=== PATIENT | male | born 1955 | race African-American/Black ===

== ENCOUNTER 2016-09-05 16:03 | Observation (INO) | payer OTHER ==
--- NOTE | ~2016-09-05 | CR72 ---
[facility] A Service of [facility] & [facility] RADIOLOGY TEXT RESULTS PATIENT: EPIFANIO PIERCE LOCATION: [facility] 569-01 : 54 UNIT #: [id number] AGE: [address]: Jonathan Sutton MD SEX: M ORDER DR: [id number] [facility] [address] [facility]. [place], [place] [address] [id number] I MR#: [id number] Acc #: [id number] NAME: EPIFANIO PIERCE : 1955 SEX: M STUDY DATE/TIME: 09/05/2016 18:13 UNIT: CEDOF ROOM: 66491 STUDY DESCRIPTION: CR Chest Single View Portable Attending Physician: Arslan Harris M.D. Ordering Physician: Ed Doctor [id number] [facility] Primary Care Physician: No Primary Care Physician MEDICAL IMAGING REPORT This report is preliminary unless electronic signature is present EXAM Portable chest x-ray, 09/05/2016 HISTORY Syncope, chest pain today. Smoker. FINDINGS AP radiograph of the chest is presented. No comparisons. Mild dextroscoliosis mid thoracic spine. No acute-appearing bony abnormality. The heart is upper limits of normal in size. Lungs are well inflated. There is evidence of bullous emphysematous change in the bilateral upper lung zones more pronounced on the right than left. No evidence of acute infectious or inflammatory disease in the lungs. No pleural effusion or pneumothorax. No suspicious nodule. Dictated by... Emilio Cartagena M.D. THIS IS AN ELECTRONICALLY VERIFIED REPORT Emilio Cartagena M.D. at 09/09/2016 10:59 PM Aravind TD: 09/05/2016 22:58 JOB #: [id number] MEDICAL IMAGING REPORT Page 1 of 1 COPY
--- NOTE | ~2016-09-05 | CO ---
Unit #: [id number] #: [id number] Patient: EPIFANIO PIERCE [id number] [facility] [address] [facility] [place]. [place], [place] [address] [id number] I MR#: [id number] NAME: EPIFANIO PIERCE ROOM: 569 Age: 60 Sex: M Admission Date: 09/05/2016 : 1955 Attending Physician: Jonathan Sutton M.D. Consultation Date: 09/06/2016 CONSULTATION REPORT REASON FOR CONSULTATION Syncopal episode. PATIENT IDENTIFICATION This is a 60-year-old right-handed male, who was evaluated in room 569 at [facility]. SOURCE OF INFORMATION The patient and evaluation done by admitting team. PROBLEM LIST 1. Recurrent syncope. 2. History of alcohol abuse. 3. History of hiatal hernia repair. HISTORY OF PRESENT ILLNESS This is a very pleasant 60-year-old gentleman, who actually was brought in because he had a syncopal episode. The patient states that he was outside checking on I believe his dog and he came inside and felt very lightheaded and the next thing he knew somebody was knocking at the door as he had collapsed and passed out. There is no witness here to tell me whether there was anything suggesting seizure or seizure-like activity. The gentleman had something happened on Mother's Day, but I do not have the details and also something happened last year and he was taken to [facility]. His head CT looks okay. His random glucose was 101 to 140. His sodium was low at 132 to 133. His alcohol level was less than 5. He says he has not had a drink since and he only drinks about 2 beers a day, but I have no way to corroborate that. He did acknowledge about 6 pack daily in the past and started quitting about 3 weeks ago. So far, the working diagnosis is possible dehydration. He does not have significant autonomic hyperactivity though his blood pressure one time went up to 163 systolic and 96 diastolic. He is awake and alert and wants to go home. 1. Epilepsy not established. 2. He really is not taking any medication. There is no change in medication. Again, details are very sketchy. 3. No tongue bites. No loss of bowel or bladder control. 4. No carpet rug type friction injury. No other cause identified. His CT head was okay. CTA was okay. Cardiology is seeing him also. PAST MEDICAL HISTORY As discussed above. Unit #: [id number] #: [id number] Patient: EPIFANIO PIERCE PAST SURGICAL HISTORY Hiatal hernia repair. ALLERGIES Penicillin. HOME MEDICATIONS Apparently, he does not take anything. FAMILY HISTORY Nothing suggesting seizure or stroke. SOCIAL HISTORY Apparently, he used to be heavy drinker. For now, 1 to 2 beer a day. Denies drug use. He is a smoker about a pack a day. He is single, but he says that he has a friend. REVIEW OF SYSTEMS Mostly as discussed in history of present illness. PHYSICAL EXAMINATION VITAL SIGNS: Temperature 98.1, pulse 73, respirations 16, blood pressure 160/94, O2 saturations 93% to 99%. Weight of 177 pounds, BMI was 24. NEUROLOGIC: The patient is awake. He is alert. He is oriented. He can name and he can follow commands. No right or left confusion. No finger agnosia. Cranial nerve examination demonstrates full gomes of vision to confrontation. Eye movements are conjugate. I did not see any ptosis. I did not see any nystagmus. Extraocular movements are intact. Sensation on the face and scalp are normal. Strength of muscles of facial expression normal. Hearing seemed to be intact bilaterally. Tongue was midline. Uvula was midline. Palate elevation was normal. Head turning and shoulder shrugs were unremarkable. Motor examination demonstrated normal bulk, tone. Strength was essentially 5/5. Sensory examination intact for soft touch and pain sensation. No extinction was seen. Romberg was not evaluated. Gait examination was deferred. I could not get any reflexes. Toes are equivocal. Coordination was normal otherwise. DIAGNOSTIC STUDIES LABORATORY RESULTS: Reviewed. IMAGING STUDIES: Reviewed. IMPRESSION Recurrent syncopal episodes. Cause is not identified. At one time, he reports that he was drinking and he passed out. The other is at this time, he was not drinking and what happened on Mother's Day I really do not know. Epilepsy has not been ruled in or ruled out. If there is no Unit #: [id number] #: [id number] Patient: EPIFANIO PEIRCE other cause identified, I would recommend that we get EEG on him, which can be done inpatient or outpatient. Call me in the meantime. Since he is passing out and we do not have any cause identified, he needs to be on loss of consciousness precaution. I do recommend Johnathan at this time. I will check his other labs. Cardiology is seeing him and we will see how things go. I will check his carotid Doppler. I checked his CTA and that was okay. There is no hypotension that I can see. If he is stable otherwise, he can be followed up as outpatient and call me for any further event and if we can identify particular cause that would be fine and otherwise nothing else to add. If he is here on Thursday, we can do an EEG then and let me know if I can help in any other way. Dictated by... Stephanie Forrester/joshua TD: 09/07/2016 04:07 JOB #: [id number] CONSULTATION REPORT Page 1 of 1 X Aristeo Pat MD X CONSULTATION REPORT
--- NOTE | ~2016-09-05 | CT23 ---
[facility] A Service of [facility] RADIOLOGY TEXT RESULTS PATIENT: EPIFANIO PIERCE LOCATION: [facility] 5612-19 : 54 UNIT #: [id number] AGE: [address]: Jonathan Sutton MD SEX: M ORDER DR: [id number] [facility] [address] [facility]. [place], [place] [address] [id number] I MR#: [id number] Acc #: [id number] NAME: EPIFANIO PIERCE : 1955 SEX: M STUDY DATE/TIME: 09/05/2016 22:20 UNIT: [facility] ROOM: [facility] STUDY DESCRIPTION: CT Angio Neck Attending Physician: Arslan Harris M.D. Ordering Physician: Bailey Robles M.D. Primary Care Physician: No Primary Care Physician MEDICAL IMAGING REPORT This report is preliminary unless electronic signature is present EXAM CTA head and neck INDICATIONS Confusion. Syncope. Lethargy. TECHNIQUE CT angiography of the head and neck with IV contrast. 100 mL Isovue-370 IV contrast was utilized. Coronal and sagittal 3-D MIP reconstructions were obtained. Curved planar reconstructions and volume reconstructions were also acquired. COMPARISON CT head dated 09/05/2016. FINDINGS CTA NECK: Evaluation for a significant stenosis is based upon the NASCET criteria. There is a bovine aortic arch. The left vertebral artery arises directly off the arch. Both carotid arteries are widely patent. There is no evidence of a significant carotid arterial stenosis. There is mild atherosclerotic disease at the bifurcation. The vertebral arteries are patent. The right vertebral artery is dominant. The left vertebral artery terminates at the left PICA branch. No evidence of vertebral arterial stenosis. There is severe bullous emphysema in the lung apices. CTA HEAD: The intracranial internal carotid arteries are widely patent. No evidence of a significant stenosis. The middle cerebral arteries and the anterior cerebral arteries are patent. The anterior communicating artery is not clearly identified. The right posterior communicating [facility] A Service [facility] RADIOLOGY TEXT RESULTS PATIENT: EPIFANIO PIERCE LOCATION: [facility] : 54 UNIT #: [id number] AGE: [address]: Jonathan Sutton MD SEX: M ORDER DR: artery is patent. Left posterior communicating artery is not clearly identified. There is no evidence of a significant vascular stenosis, thrombosis, or aneurysm. The basilar artery is normal. There is some mild mucosal thickening within the paranasal sinuses. No acute osseous abnormalities. Degenerative changes are noted in the cervical spine. IMPRESSION 1. No evidence of a significant carotid arterial stenosis in the neck. 2. No intracranial aneurysm, stenosis, or thrombosis in the head. 3. Bullous emphysema in the lung apices. Dictated by... Evans Jason M.D. THIS IS AN ELECTRONICALLY VERIFIED REPORT Evans Jason M.D. at 09/06/2016 11:16 PM COBY/tyesha TD: 09/06/2016 04:06 JOB #: [id number] MEDICAL IMAGING REPORT Page 1 of 1 COPY
--- NOTE | ~2016-09-05 | EKG ---
PATIENT: EPIFANIO PIERCE UNIT #: [id number] Ventricular Rate: 70 BPM Atrial Rate: 70 BPM P-R Interval: 184 ms QRS Duration: 84 ms Q-T Interval: 416 ms QTC Calculation(Bezet): 449 ms P Carlisle: 73 degrees Calculated R Carl[place]: 49 degrees Calculated T Carlisle: 50 degrees Diagnosis Line: Normal sinus rhythm Diagnosis Line: Normal ECG Diagnosis Line: No previous ECGs available Diagnosis Line: Confirmed by DEO GODFREY MD ([id number]) on Diagnosis Line: 09/06/2016 4:28:29 PM INTERPRETING MD: EPIFANIO CORONA
--- NOTE | ~2016-09-05 | CT17 ---
[facility] A Service of [facility] & [facility] RADIOLOGY TEXT RESULTS PATIENT: EPIFANIO PIERCE LOCATION: [facility] 569-01 : 54 UNIT #: [id number] AGE: [address]: Jonathan Sutton MD SEX: M ORDER DR: [id number] [facility] [address] [place], [place] [address] [id number] I MR#: [id number] Acc #: [id number] NAME: EPIFANIO PIERCE : 1955 SEX: M STUDY DATE/TIME: 09/05/2016 22:20 UNIT: [facility] ROOM: [facility] STUDY DESCRIPTION: CT Angio Head Attending Physician: Arslan Harris M.D. Ordering Physician: Bailey Robles M.D. Primary Care Physician: No Primary Care Physician MEDICAL IMAGING REPORT This report is preliminary unless electronic signature is present EXAM CTA head Please see CTA neck for results. Dictated by... Evans Jason M.D. THIS IS AN ELECTRONICALLY VERIFIED REPORT Evans Jason M.D. at 09/06/2016 11:15 PM RPC/rnr TD: 09/06/2016 04:07 JOB #: [id number] MEDICAL IMAGING REPORT Page 1 of 1 COPY
--- NOTE | ~2016-09-05 | DS ---
Unit #: [id number] #: [id number] Patient: EPIFANIO PIERCE [id number] [address] [place], [place] [address] [id number] MR#: [id number] NAME: EPIFANIO PIERCE ROOM: 569 Age: 60 Sex: M Admission Date: 09/05/2016 : 1955 Discharge Date: Attending Physician: Jonathan Sutton M.D. Primary Care Physician: Primary Care Physician No DISCHARGE SUMMARY CONSULTANTS 1. Dr. Pat 2. Dr. Nicholas Aldana ADMITTING DIAGNOSES Syncopal episode. FURTHER DIAGNOSES Possible seizure episode. He needs an outpatient EEG. HISTORY OF PRESENT ILLNESS The patient is a 60-year-old man, with past medical history alcohol abuse who is currently tapering down his alcohol, presented to the emergency room with the chief complaint of syncopal episodes. He mentions that he passed out, does not know exactly what happened, could not recollect any seizure-like episodes. He mentions he had a similar episode on Mother's Day, a week ago. HOSPITAL COURSE He was seen by Neurology, he was seen by Cardiology. He had a CT of the head which was essentially normal. CT angiogram of head and neck did not show any evidence of stenosis. Neurology evaluated and mentioned that a seizure episode cannot be ruled out. They are recommending an outpatient EEG to be done and outpatient follow up with Neurology. Dr. Pat started him on Keppra 500 mg p.o. b.i.d. The patient denies any further episodes. He has a history of alcoholism but he drinks about two beers per day. His initial alcohol level was less than 5. He did not have any alcohol withdrawal symptoms. He is doing clinically better. We will discharge him home. He does not have any orthostatic changes in his vital signs. We will request him to follow with Neurology and Primary Care as an outpatient. PHYSICAL EXAMINATION ON DISCHARGE VITAL SIGNS: Temperature 98.2, pulse rate 59, respirations 18, blood pressure 165/89. GENERAL: Patient is alert and oriented times 3, lying in the bed in no acute distress. HEENT: Normocephalic, atraumatic. No icterus. PERRLA. Extraocular muscles are intact. NECK: Supple. No JVD. HEART: S1, S2 regular rate and rhythm. CHEST: Bilateral equal air entry. Clear to auscultation. ABDOMEN: Soft and nontender. EXTREMITIES: No edema. Normal peripheral pulses. Unit #: [id number] #: [id number] Patient: EPIFANIO PIERCE DISCHARGE MEDICATIONS Include: 1. Keppra 500 mg p.o. b.i.d. 2. Protonix 40 mg p.o. b.i.d. DISCHARGE INSTRUCTIONS He is instructed to follow with Neurology, Dr. Perrin, as an outpatient. I am asking rn case manager to provide the office number for him. Also, he is to follow up with his primary care in one to two weeks. All discharge instructions were explained in detail to the patient. Total time spent in his care 28 minutes. Dictated by... Stephanie Orosco/guido TD: 09/08/2016 17:41 JOB #: [id number] DISCHARGE SUMMARY Page 1 of 1 X X DISCHARGE SUMMARY
--- NOTE | ~2016-09-05 | CT71 ---
[facility] A Service of [facility] & [facility] RADIOLOGY TEXT RESULTS PATIENT: EPIFANIO PIERCE LOCATION: [facility] 569-01 : 54 UNIT #: [id number] AGE: [address]: Jonathan Sutton MD SEX: M ORDER DR: [id number] [facility] [address] [facility]. [place], [place] [address] [id number] I MR#: [id number] Acc #: [id number] NAME: EPIFANIO PIERCE : 1955 SEX: M STUDY DATE/TIME: 09/05/2016 18:06 UNIT: CEDOF ROOM: 60553 STUDY DESCRIPTION: CT Head Wo Contrast Attending Physician: Arslan Harris M.D. Ordering Physician: Lai Chand M.D. Primary Care Physician: No Primary Care Physician MEDICAL IMAGING REPORT This report is preliminary unless electronic signature is present EXAM CT no contrast 09/05/2016 INDICATIONS 60-year-old male with blackout spells at time, syncopal episode today at approximately 1400 hours. Lethargy. TECHNIQUE Noncontrast CT of the brain was performed. We have no comparisons. TECHNIQUE This CT exam was performed with one or more of the following radiation dose reduction techniques: automatic control, adjustment of mA and/or kV according to patient size, and iterative reconstruction. FINDINGS CT BRAIN: Incidental disconjugate gaze. There is mild generalized atrophy. Sulci and ventricles are otherwise unremarkable. No midline shift. There is no mass, mass effect or edema to suggest acute infarct no extraaxial fluid collections are present. Globes are intact. Bones are intact. There is chronic-appearing ethmoid and maxillary sinus disease. IMPRESSION 1. No clearly acute intracranial process. Generalized atrophy. 2. Maxillary sinus disease and ethmoid sinus disease. Dictated by... Robe Cortés M.D. THIS IS AN ELECTRONICALLY VERIFIED REPORT Robe Cortés M.D. at 09/06/2016 4:14 PM LORNA/tyesha [facility] A Service of [facility] RADIOLOGY TEXT RESULTS PATIENT: EPIFANIO PIERCE LOCATION: [facility] 569-01 : 54 UNIT #: [id number] AGE: [address]: Jonathan Sutton MD SEX: M ORDER DR: TD: 09/05/2016 23:11 JOB #: [id number] MEDICAL IMAGING REPORT Page 1 of 1 COPY
--- NOTE | ~2016-09-05 | HP ---
Unit #: [id number] #: [id number] Patient: EPIFANIO PIERCE [id number] [facility]. [place], [place] [address] [id number] I MR#: [id number] NAME: EPIFANIO PIERCE ROOM: 33273 Age: 60 Sex: M Admission Date: 09/05/2016 : 1955 Attending Physician: Arslan Harris M.D. Primary Care Physician: No Primary Care Physician HISTORY AND PHYSICAL CHIEF COMPLAINT Syncopal episode. DISCUSSION This is a 60-year-old gentleman who has a past medical history of alcohol abuse which he said he is cutting down now. He thinks he drinks very well. He drinks some beer. He presented to emergency room with chief complaining of having evaluation for syncopal episode. He said he was working outside, building a [employer]. He felt sick and came inside and become extremely diaphoretic and sat on the ground and became confused and then said almost blacked out. It happened, a similar episode on Mother's Day and also one year ago in [facility] admission. At that time he was told unremarkable workup. Denied chest pain, he threw up x2 today. He denies any other complaint. PAST MEDICAL HISTORY History of syncopal episode one year ago. PAST SURGICAL HISTORY History of hiatal hernia repair. SOCIAL HISTORY Smokes one pack daily, he drinks alcohol. He used to be a heavy drinker but now he is drinking a few beers daily, denies other illicit drug use. ALLERGIES Penicillin. HOME MEDICATION Does not take any medication. REVIEW OF SYSTEMS All review of systems negative except as history of present illness. PHYSICAL EXAMINATION GENERAL: On examination middle-age may lying in the bed comfortably, currently not in any distress. On general examination he is alert, awake, oriented x3, comfortable, not in any distress. VITAL SIGNS: Current vitals are following: Temp is 98.2, heart rate 81, respiratory rate 16, blood pressure 130/84, oxygen 98% on room air. HEENT EXAMINATION: Pupils equally react to light and accommodation. Head is normocephalic and atraumatic. NECK: Supple. No JVD. Unit #: [id number] #: [id number] Patient: EPIFANIO PIERCE HEART: S1, S2. Regular rate and rhythm. ABDOMEN: Soft, nontender and nondistended. Bowel sounds positive. EXTREMITIES: Inspection normal. No cyanosis. No clubbing. No edema. NEUROLOGIC: No focal neurologic deficit. Cranial nerves II-XII intact. DIAGNOSTIC STUDIES LABORATORY: Workup is following: CBC: White count 10, hemoglobin 14, hematocrit 44, platelets 316. Alcohol level less than 5. Chemistry: Sodium 132, potassium 3.9, chloride 98, glucose 101, BUN 13, creatinine 1. LFTs within normal limits. Troponin less than 0.05. IMAGING: Chest x-ray negative. CT head shows sinus ethmoid disease, otherwise unremarkable. ASSESSMENT AND PLAN 1. Syncopal episode, recurrent: Will admit the patient to get a CT of head and neck, ask Cardiology and Neurology to evaluate. Will get 2D echo. 2. History of alcohol abuse. 3. Tobacco abuse. 4. DVT prophylaxis: Will place the patient on SCDs. Dictated by Stephanie Lepe/wilberto TD: 09/05/2016 22:11 JOB #: [id number] HISTORY AND PHYSICAL Page 1 of 1 X X HISTORY AND PHYSICAL
--- NOTE | ~2016-09-05 | CO ---
Unit #: [id number] #: [id number] Patient: EPIFANIO PIERCE [id number] [facility]. [place], [place] [address] [id number] I MR#: [id number] NAME: EPIFANIO PIERCE ROOM: 569 Age: 60 Sex: M Admission Date: 09/05/2016 : 1955 Attending Physician: Jonathan Sutton M.D. Primary Care Physician: Primary Care Physician No Consultation Date: 09/06/2016 CONSULTATION REPORT HISTORY OF PRESENT ILLNESS This is a 60-year-old male patient who was building a door yesterday when it was hot. The patient became nauseated, came inside and became diaphoretic and passed out. He might have been out for half an hour. He woke up when his nephew came and knocked on the door. He had a similar episode on Mother's Day and about a year ago at [place]. Workup at [place] was inconclusive. He used to drink two cans of 24 ounce of beers a day. He has cut down to one can every other day. He used to be a drive in teller, currently unemployed. He denies any hypertension, diabetes, or hyperlipidemia. No history of myocardial infarction or congestive heart failure. No history of rheumatic fever or congenital heart disease. PAST SURGICAL HISTORY Bilateral inguinal hernia repair. ALLERGIES Penicillin. FAMILY HISTORY Negative for premature coronary artery disease or sudden . HOME MEDICATIONS None. REVIEW OF SYSTEMS No fever, chills, night sweats, or weight loss. All others are negative except as mentioned above. PHYSICAL EXAMINATION VITAL SIGNS: Blood pressure 160/94, heart rate 73 per minute, respiratory rate is 16 per minute. GENERAL APPEARANCE: The patient is well developed. HEENT: Oral mucosa without cyanosis or pallor. No xanthelasma. NECK: No JVD. CARDIOVASCULAR: Regular rate and rhythm. PMI is nondisplaced on auscultation. S1 and S2 normal. No S3, S4, murmur, rubs, or clicks noted. VASCULAR: Carotid pulses are brisk without bruit. Abdominal aorta without bruit. Femoral and pedal pulses are normal with normal pulse amplitude. LUNGS: Clear to auscultation without rales, rhonchi, or wheezes. No accessory muscle use noted. ABDOMEN: Soft and nontender. No hepatosplenomegaly. RECTAL: Deferred. EXTREMITIES: Warm and dry. No cyanosis or clubbing. No pedal edema. Unit #: [id number] #: [id number] Patient: EPIFANIO PIERCE MUSCULOSKELETAL: No scoliosis. DERMATOLOGY: No stasis dermatitis. NEUROLOGIC: Alert and oriented x3. Pleasant affect. DIAGNOSTIC STUDIES LABORATORY RESULTS: Glucose 140, BUN 12, creatinine 1.0. Sodium 133, potassium 3.9. WBC 10.1, hemoglobin 14.3, hematocrit is 44, platelet count 316,000. IMAGING STUDIES: CT of the head, no acute intracranial process. CT angiogram showed intracranial internal carotid arteries are widely patent. No evidence of any aneurysm or thrombosis of the leg. Bullous emphysema in the lung apices. IMPRESSION Syncope, possibly neurocardiogenic or possibly dehydration, alcohol abuse. PLAN The patient will have blood pressure check for orthostatics. We will check an echocardiogram. Neuro evaluation. We will follow with you. Thank you for letting me participate in his care. Dictated by... Nicholas Aldana M.D. RASHARD/joshua TD: 09/06/2016 23:17 JOB #: [id number] CONSULTATION REPORT Page 1 of 1 X Nicholas Aldana MD X CONSULTATION REPORT
[2016-09-05 18:11] LABS: BASOPHIL% 0.4 % (0-2.5); DIFF IND NO; EOSINOPHIL% 0.3 % (0.0-7.0); HEMOGLOBIN 14.3 gm/dL (13.0-16.0); LYMPHOCYTE# 0.9 X10e3 (1.0-3.5); LYMPHOCYTE% 9.1 % (17.0-45.0); MEAN CORPUSCULAR HEMOGLOBIN 31.9 PG (28-34); MEAN CORPUSCULAR HGB CONC 32.6 g/dL (30-36); MEAN PLATELET VOLUME 7.1 FL (6.5-11.5); MONOCYTE% 9.5 % (3.0-12.0); NEUTROPHIL# 8.2 X10e3 (1.5-7.1); NEUTROPHIL% 80.7 % (40-75); PLATELET COUNT 316 X10e3 (140-420); RED BLOOD COUNT 4.49 X10e (3.90-5.60); RED CELL DISTRIBUTION WIDTH 15.3 % (11.0-15.5); WHITE BLOOD COUNT 10.1 X10e3 (4.0-10.5)
[2016-09-05 18:28] LABS: ALBUMIN SERUM 3.7 g/dL (3.5-5.0); BILIRUBIN, DIRECT 0.1 mg/dL (0.0-0.2); BILIRUBIN,INDIRECT 0.6 mg/dL (0.0-0.9); BILIRUBIN,TOTAL 0.7 mg/dL (0.2-2.0); CALCIUM SERUM 8.5 mg/dL (8.4-10.2); GLOM FILT RATE Estimated 93.7 mL/min (>60); POTASSIUM 3.9 mmol/L (3.5-5.1); PROTEIN TOTAL SERUM 7.5 g/dL (6.0-8.3)
[2016-09-05 19:38] LABS: POC - CKMB 1.3 ng/mL (0.0-7.9); POC - TROPONIN <0.05 ng/mL (<=0.05)
[2016-09-05 21:04] LABS: POC - CKMB 2.1 ng/mL (0.0-7.9); POC - TROPONIN <0.05 ng/mL (<=0.05)
[2016-09-06] MEDS ORDERED: NO MEDICATIONS (01:06)
[2016-09-06 06:04] LABS: CALCIUM SERUM 8.9 mg/dL (8.4-10.2); GLOM FILT RATE Estimated 93.7 mL/min (>60); POTASSIUM 3.9 mmol/L (3.5-5.1)
[2016-09-06 10:34] LABS: HEMATOCRIT 39.7 % (38.0-50.0); HEMOGLOBIN 13.1 gm/dL (13.0-16.0); MEAN CELL VOLUME 97.5 FL (83-96); MEAN CORPUSCULAR HEMOGLOBIN 32.1 PG (28-34); RED BLOOD COUNT 4.08 X10e (3.90-5.60); RED CELL DISTRIBUTION WIDTH 15.3 % (11.0-15.5); WHITE BLOOD COUNT 8.6 X10e3 (4.0-10.5)
[2016-09-06 11:08] LABS: THYROID STIMULATING HORMONE 0.5 uIU/ml (0.34-5.60)
[2016-09-06 11:15] LABS: FREE THYROXIN (T4) 0.86 ng/dL (0.58-1.64)
[2016-09-06 11:21] LABS: ALBUMIN SERUM 3.2 g/dL (3.5-5.0); BILIRUBIN,TOTAL 0.5 mg/dL (0.2-2.0); CALCIUM SERUM 8.4 mg/dL (8.4-10.2); GLOM FILT RATE Estimated 93.7 mL/min (>60); POTASSIUM 3.4 mmol/L (3.5-5.1); PROTEIN TOTAL SERUM 6.1 g/dL (6.0-8.3)
[2016-09-06 11:50] LABS: %MB 1.3 % (0.0-4.0); MB 1.9 ng/ml
[2016-09-06 12:58] LABS: URINE SOURCE CLEAN CATCH
[2016-09-06 13:42] LABS: AMPHETAMINE NEG (NEG); BARBITURATES NEG (NEG); BENZODIAZEPINES NEG (NEG); COCAINE POS (NEG); MARIJUANA NEG (NEG); OPIATES POS (NEG); TRICYCLIC ANTIDEPRESSANTS NEG (NEG); U METHADONE NEG (NEG)
[2016-09-06 13:53] LABS: URINE APPEARANCE CLEAR; URINE BILIRUBIN NEG (NEG); URINE BLOOD NEG (NEG); URINE COLOR YELLOW; URINE GLUCOSE NEG (NEG); URINE KETONE NEG (NEG); URINE LEUKOCYTE ESTERASE NEG (NEG); URINE NITRATE NEG (NEG); URINE PH 7.5 (5-8); URINE PROTEIN NEG (NEG); URINE SPECIFIC GRAVITY 1.016 (1.003-1.035)
[2016-09-06 13:53] LABS: FOLATE (FOLIC ACID) 17.9 ng/mL (>5.8)
[2016-09-06 14:04] LABS: CULTURE INDICATED? NO
[2016-09-06 16:13] LABS: %MB 1.3 % (0.0-4.0); MB 1.9 ng/ml
[2016-09-07 08:53] LABS: BUN/CREATININE RATIO 8.75; CREATININE SERUM 0.8 mg/dL (0.6-1.4); GLOM FILT RATE Estimated 111.8 mL/min (>60); POTASSIUM 4.1 mmol/L (3.5-5.1)
[2016-09-08 07:48] LABS: HEMATOCRIT 40.2 % (38.0-50.0); HEMOGLOBIN 12.8 gm/dL (13.0-16.0); MEAN CELL VOLUME 98.8 FL (83-96); MEAN CORPUSCULAR HEMOGLOBIN 31.6 PG (28-34); MEAN PLATELET VOLUME 7.9 FL (6.5-11.5); RED BLOOD COUNT 4.07 X10e (3.90-5.60); RED CELL DISTRIBUTION WIDTH 15.8 % (11.0-15.5)
[2016-09-08 08:26] LABS: BUN/CREATININE RATIO 7.77; CREATININE SERUM 0.9 mg/dL (0.6-1.4); GLOM FILT RATE Estimated 106.5 mL/min (>60); POTASSIUM 4.1 mmol/L (3.5-5.1)
[2016-09-08] MEDS ORDERED: PANTOPRAZOLE SO40 MG PO (17:15)
[2016-09-08] MEDS ORDERED: KEPPRA500 M2 PO (17:18)
== END 2016-09-08 18:02 | disposition home or self-care (01) ==
LOC: CED 16:03 → C5C 21:35 → CEDOF 21:35 → C5C 09-06 00:28
PROVIDERS: Emergency Medicine; Internal Medicine
DX: R55 Syncope and collapse (principal); F17.200 Nicotine dependence, unspecified, uncomplicated; I35.1 Nonrheumatic aortic (valve) insufficiency; I51.9 Heart disease, unspecified; F10.10 Alcohol abuse, uncomplicated; Z88.0 Allergy status to penicillin; J43.9 Emphysema, unspecified
CPT/HCPCS: 36415; 70450; 70496; 70498; 71010; 80048; 80053; 80076; 80307; 81003; 82550; 82553; 82607; 82746; 82947; 84439; 84443; 84484; 85025; 85027; 86592; 93005; 93306; 96372; 96374; 96375; 96376; 99285; C9113; G0378; G0480; J2405; J3411; J7042; Q9967